=== PATIENT | male | born 1985 | race Caucasian/White ===

== ENCOUNTER 2020-06-25 09:59 | Outpatient (CLI) | payer BC ==
--- NOTE | 2020-06-25 11:13 | XRAY Report ---
PROCEDURE: Chest 2 View X-Ray INDICATIONS: Chest pain TECHNIQUE: 2 view(s) of the chest. COMPARISON: None. FINDINGS: Surgical changes and devices: None. Lungs and pleura: No pleural effusions or pneumothorax. Lungs are clear. Mediastinum: Mediastinal contours are normal. Heart size is normal. Bones and chest wall: No suspicious bony abnormalities. Soft tissues appear unremarkable. IMPRESSION: No acute cardiopulmonary process demonstrated radiographically. Reviewed by: Rex Arizmendi MD on 06/25/2020 11:11 AM PDT Approved by: Rex Arizmendi MD on 06/25/2020 11:11 AM PDT Station ID: [id number]
== END 2020-06-25 10:00 | disposition home or self-care (01) ==
LOC: DI.S 09:59
PROVIDERS: ATTEND Emergency Medicine
DX: R07.89 Other chest pain (principal); R06.02 Shortness of breath